=== PATIENT | female | born 1965 | race Caucasian/White ===

== ENCOUNTER 2021-10-10 13:34 | Emergency (ER) | payer OTHER, SELFPAY ==
[2021-10-10 13:43] VITALS: BP 134/81; PULSE 65; RESP 18; TEMP 36.6; O2SAT 100
--- NOTE | 2021-10-10 13:54 | ED.URI ---
HPI - URI/Sore Throat General Chief Complaint: Upper Respiratory Infection Stated Complaint: cold symptoms Time Seen by Provider: 10/10/21 14:01 Source: patient and RN notes reviewed Mode of arrival: ambulatory Limitations: no limitations History of Present Illness HPI Narrative: 56-year-old female presents with concern for 1 week history of symptoms. She reports symptoms started with nasal congestion, rhinorrhea, sore throat, headache, chills, diarrhea. Reports most of those symptoms resolved but she still feels tired and has diarrhea. Reports she is having approximately 2 diarrhea stools a day. She is not taking any [id number] medications. She denies decreased urine output, vomiting, abdominal pain, fever MD elicited complaint: other (Diarrhea, general malaise) Related Data Home Medications Medication Instructions Recorded Confirmed citalopram mg 10/10/21 levothyroxine [Euthyrox] 10/10/21 Allergies Allergy/AdvReac Type Severity Reaction Status Date / Time No Known Allergies Allergy Unverified 10/10/21 13:58 Review of Systems Review of Systems: CONSTITUTIONAL: Reports malaise, fatigue. Denies chills, sweats, or fever. EYES: Denies visual changes, redness, or discharge. ENT: Denies rhinorrhea, congestion, sinus pain, otalgia and sore throat. CARDIOVASCULAR: Denies chest pain, palpitations, or edema. RESPIRATORY: Reports cough. Denies dyspnea. GASTROINTESTINAL: Denies abdominal pain, nausea, vomiting. Reports diarrhea SKIN: Denies rash or itching. MUSCULOSKELETAL: Denies myalgia. NEUROLOGIC: Denies headache. All systems reviewed & are unremarkable except as noted in HPI and below PMFSH Comments At time of signature, agree with nursing past medical, surgical, social and family history. There is no relevant family history pertinent to the presenting complaint Exam Narrative: GENERAL: Well-appearing, well-nourished, and in no acute distress. HEAD: Normocephalic EYES: PERRLA, conjunctivae clear ENT: Nares clear. Mucous membranes moist. TM pearly atkins with dull light reflex bilaterally; no tragal tenderness. Oropharynx not erythematous without lesions. Tonsils not enlarged and without exudate, no drooling, no hoarseness, no trismus, uvula midline. NECK: Supple. No lymphadenopathy CHEST: Clear to auscultation, breath sounds equal. No wheezing, rhonchi, rales, or stridor. No respiratory distress, speaks in full sentences. HEART: Regular rate and rhythm. No murmur heard. GI: Abdomen soft, nontender, bowel sounds active in all 4 quadrants SKIN: Warm, dry, no rash. NEURO: Alert and oriented x3. PSYCH: Normal mood and affect Course Course Emergency Course: Patient is aware of diagnosis, understands and agrees to treatment plan. Anticipatory guidance given. Patient agrees to follow-up as directed and is aware of reasons to seek care at the emergency department. Portions of this record may have been created with voice recognition software Level of Care: Express Care Visit Vital Signs Vital signs: Vital Signs Temperature 97.8 F 10/10/21 13:43 Pulse Rate 65 10/10/21 13:43 Respiratory Rate 18 10/10/21 13:43 Blood Pressure 134/81 10/10/21 13:43 Pulse Oximetry 100 10/10/21 13:43 Temperature 97.8 F 10/10/21 13:43 Pulse Rate 65 10/10/21 13:43 Respiratory Rate 18 10/10/21 13:43 Blood Pressure 134/81 10/10/21 13:43 Pulse Oximetry 100 10/10/21 13:43 Reviewed. MDM - URI/Sore Throat MDM Narrative Medical decision making narrative: Differential diagnosis considered: Gastroenteritis, Anderson virus, strep pharyngitis, allergic rhinitis, upper respiratory tract infection, sinusitis, rhinosinusitis, nasopharyngitis. viral pharyngitis, otitis media, otitis externa, pneumonia, bronchitis, viral cough syndrome, viral syndrome, and influenza. Exam findings show no acute concerns or changes; patient is non-toxic appearing and is in no distress. Patient is appropriate for outpatient treatment
== END 2021-10-10 14:18 | disposition home or self-care (01) ==
PROVIDERS: Emergency Provider Nurse Practitioner
DX: B34.9 Viral infection, unspecified (principal); E03.9 Hypothyroidism, unspecified
CPT/HCPCS: 99211; G0463

== ENCOUNTER 2023-08-15 11:39 | Emergency (ER) | payer OTHER, SELFPAY ==
[2023-08-15 11:51] VITALS: BP 132/69; PULSE 76; RESP 18; TEMP 37.2; O2SAT 100
--- NOTE | 2023-08-15 12:49 | ED.ANXIETY ---
HPI - Anxiety General Chief Complaint: Anxiety Stated Complaint: Anxiety/Diarrhea Source: patient Mode of arrival: ambulatory Limitations: no limitations History of Present Illness HPI narrative: Patient presents for evaluation of an increase in anxiety. She stop taking her citalopram over the summer. Recently she has had increased stressors in her life, noting that her brother does not get along with patient's daughter. Recently there was a verbal dispute between patient and her brother about patient's daughter interacting with her mother. Patient reports an increase in anxiety since that time. She has been experiencing diarrhea which she attributes to stress. No illicit drug use. No suicidal or homicidal ideations. Related Data Home Medications Medication Instructions Recorded Confirmed citalopram 10 mg tablet 10 mg PO DAILY 10/10/21 levothyroxine 100 mcg tablet 100 mcg PO DAILY 10/10/21 08/15/23 (Euthyrox) Allergies Allergy/AdvReac Type Severity Reaction Status Date / Time No Known Allergies Allergy Verified 08/15/23 11:41 Review of Systems Review of Systems: CONSTITUTIONAL: Denies fever, chills, or sweats. EYES: Denies visual changes, redness, or discharge. ENT: Denies rhinorrhea, congestion, sore throat, or otalgia. CARDIOVASCULAR: Denies chest pain, palpitations, or edema. RESPIRATORY: Denies cough or dyspnea. GASTROINTESTINAL: Reports diarrhea. Denies abdominal pain, nausea, or vomiting GENITOURINARY: Denies dysuria or hematuria. SKIN: Denies rash or itching. MUSCULOSKELETAL: Denies back pain, joint pain, or myalgia. NEUROLOGIC: Denies headache, numbness, dizziness, or weakness. PSYCHIATRIC: Reports anxiety. Denies SI/HI PMFSH Past Medical History Medical History Anxiety History of thyroid disorder Surgical History Surgical History No pertinent past surgical history Family History Family History (Updated 08/15/23 @ 12:53 by WILMAR Duncan, ) Mother No problems noted. Exam Narrative: GENERAL: Well-appearing, well-nourished, and in no acute distress. HEAD: Normocephalic, atraumatic. EYES: PERRLA and EOMI. ENT: Nares clear, no rhinorrhea or epistaxis. Mucous membranes moist. Oropharynx without tonsillar hypertrophy exudate or other lesions. Bilateral TMs pearly atkins nonbulging NECK: Supple. No adenopathy or masses. No carotid bruits or JVD CHEST: Clear to auscultation. No respiratory distress. No wheezes rales or rhonchi HEART: Regular rate and rhythm. No murmur heard. Normal peripheral pulses. ABDOMEN: Soft, nontender, nondistended, normal active bowel sounds. EXTREMITIES: Normal range of motion. No edema. SKIN: Warm, dry, no rash. NEURO: No focal deficits. Alert and oriented x3. PSYCH: Tearful and anxious Course Course Emergency Course: This is a 58-year-old female who presented for evaluation of an increase in anxiety. Will restart his citalopram and give her some Vistaril to help with her symptoms while citalopram is being started. She has no acute psychotic features. She should follow up with her primary provider and go to the ER for worsening symptoms. She can take Imodium for diarrhea. Pt in agreement with plan of care. Level of Care: Express Care Visit Vital Signs Vital signs: Vital Signs Temperature 37.2 C 08/15/23 11:51 Pulse Rate 76 08/15/23 11:51 Respiratory Rate 18 08/15/23 11:51 Blood Pressure 132/69 08/15/23 11:51 Pulse Oximetry 100 08/15/23 11:51 Oxygen Delivery Room Air 08/15/23 11:51 Temperature 37.2 C 08/15/23 11:51 Pulse Rate 76 08/15/23 11:51 Respiratory Rate 18 08/15/23 11:51 Blood Pressure 132/69 08/15/23 11:51 Pulse Oximetry 100 08/15/23 11:51 Oxygen Delivery Room Air 08/15/23 11:51 Discharge Plan Discharge Clinical Impression: Anxiety
== END 2023-08-15 12:55 | disposition home or self-care (01) ==
PROVIDERS: Emergency Provider Nurse Practitioner
DX: F41.9 Anxiety disorder, unspecified (principal); E03.9 Hypothyroidism, unspecified
CPT/HCPCS: 99213; G0463

== ENCOUNTER 2023-09-07 11:45 | Emergency (ER) | payer OTHER, SELFPAY ==
--- NOTE | 2023-09-07 11:50 | ED.NAVMDI ---
HPI - Nausea/Vomiting/Diarrhea General Stated complaint: Diarrhea/Fatigue Time Seen by Provider: 09/07/23 11:51 Source: patient Mode of arrival: ambulatory Limitations: no limitations Related Data Home Medications Medication Instructions Recorded Confirmed citalopram 10 mg tablet 10 mg PO DAILY 10/10/21 levothyroxine 100 mcg tablet 100 mcg PO DAILY 10/10/21 08/15/23 (Euthyrox) Allergies Allergy/AdvReac Type Severity Reaction Status Date / Time No Known Allergies Allergy Verified 08/15/23 11:41 Review of Systems Review of Systems: All systems reviewed & are unremarkable except as noted in HPI and below Constitutional: Constitutional: Denies body ache(s), Denies chills, Denies fatigue, Denies fever(s), Denies headache(s), Denies malaise and Denies weakness Eyes: Eyes: Denies blurry vision, Denies irritation and Denies loss of vision ENT: Denies otalgia, Denies headache(s), Denies nasal discharge, Denies sinus pain and Denies sore throat Cardiovascular: Cardiovascular: Denies chest pain, Denies irregular heart rhythm and Denies dyspnea Respiratory: Respiratory: Denies dyspnea Gastrointestinal: Gastrointestinal: Denies abdominal pain, Denies melena, Denies hematochezia, Denies diarrhea, Denies nausea and Denies vomiting Musculoskeletal: Musculoskeletal: Denies back pain, Denies myalgias and Denies arthralgias Integumentary/Breasts: Skin/Breast: Denies pruritus and Denies rash Neurologic: Denies headache(s), Denies loss of vision and Denies weakness Psychiatric: Psychiatric: Reports no additional psychiatric complaints Endocrine: Endocrine: Denies fatigue [facility] Past Medical History Medical History Anxiety History of thyroid disorder Surgical History Surgical History No pertinent past surgical history Family History Family History (Updated 08/15/23 @ 12:53 by WILMAR Duncan, ) Mother No problems noted. Comments At time of signature, agree with nursing past medical, surgical, social and family history. There is no relevant family history pertinent to the presenting complaint. Exam Const: General: cooperative, healthy appearing, comfortable, no acute distress and well nourished Nutritional Appearance: well nourished Orientation/consciousness: patient oriented x3 Limitations: no limitations HENMT: Head: normal to inspection, normocephalic and atraumatic Ears: hearing grossly normal bilaterally and external ears normal Face/Nose/Sinus: Normal external nose present, normal facial exam and face symmetric Face and sinus: normal facial exam and face symmetric Mouth: Yes lip normal Eyes: General: appearance normal, both eyes and all related structures Alignment and Position: alignment normal and position normal Periorbital: periorbital findings normal Eyelids: eyelids normal Pupils: Equal, round and reactive pupils present EOM: EOMs intact bilaterally Neck: Neck: normal visual inspection, full ROM and supple Chest: Chest palpation & inspection: normal inspection of the chest Resp: Effort & Inspection: normal respiratory effort and able to speak in complete sentences Auscultation: clear to auscultation bilaterally Cardio: Rate: regular rate Rhythm: regular rhythm Heart sounds: S1 normal heart sound present and S2 normal heart sound present GI: Inspection: normal to inspection Skin: General skin exam: normal color and no rashes or lesions noted Neuro: General: patient oriented x3 and moves all extremities Cranial nerves: Yes Equal, round and reactive pupils present Speech: normal speech Gait exam (Neuro): Normal gait present Extrem: General: normal to inspection, full ROM and no edema Psych: Appearance: grossly normal and well kempt Mental Status: mental status grossly normal Speech and movement: Normal speech and movement present Affect: xu
[2023-09-07 11:56] VITALS: BP 133/86; PULSE 90; RESP 16; TEMP 36.7; O2SAT 99
--- NOTE | 2023-09-07 12:12 | PC.NURSE ---
Pt left prior to being seen by provider or assessed. Pt spoke with and received order for rapid Covid test. Pt did not want to stay and have to pay for visit.
== END 2023-09-07 12:12 | disposition left against medical advice (07) ==
PROVIDERS: Emergency Provider Internal Medicine Hematology & Oncology; PCP Emergency Medicine
DX: Z53.21 Procedure and treatment not carried out due to patient leaving prior to being seen by health care provider (principal)
CPT/HCPCS: 99199

== ENCOUNTER 2023-09-07 12:30 | Outpatient (CLI) | payer OTHER, SELFPAY ==
[2023-09-07 13:05] LABS: Appearance Urine Clear (Clear); Bilirubin Urine Negative (Negative); Blood Urine Negative (Negative); Color Urine Yellow (Yellow); Glucose Urine UA Negative (Negative); Ketones Urine Negative (Negative); Leukocyte Esterase Ur Negative LEU/UL (NEGATIVE); Nitrate Urine Negative (Negative); Protein Urine Negative (Negative); Specific Grav Ur 1.008 (1.001-1.035); Urobilinogen Urine 0.2 mg/dL (<2.0)
[2023-09-07 13:22] LABS: Add Urine Microscopic? NO
[2023-09-07 13:47] LABS: SARS-CoV-2 RNA PCR Negative (Negative)
== END 2023-09-07 12:31 | disposition home or self-care (01) ==
PROVIDERS: PCP Emergency Medicine; Visit Provider Emergency Medicine
DX: R19.7 Diarrhea, unspecified (principal); Z20.822 Contact with and (suspected) exposure to COVID-19
CPT/HCPCS: 81003; 87635